=== PATIENT | female | born 1965 | race Caucasian/White ===

== ENCOUNTER 2021-05-12 19:23 | Outpatient (CLI) | payer OTHER ==
--- NOTE | 2021-05-13 11:02 | XRAY Report ---
PROCEDURE: Foot 3 View LT INDICATIONS: FX OF L FOOT TECHNIQUE: 3 views of the foot were acquired. COMPARISON: None FINDINGS: Bones: No fractures or dislocations. No suspicious bony lesions. Soft tissues: No tibiotalar joint effusion. Achilles tendon appears normal. IMPRESSION: 1. No visible fractures. 2. If there is no improvement with conservative management, consider MRI. Reviewed by: Libra Wray MD on 05/13/2021 11:00 AM PDT Approved by: Libra Wray MD on 05/13/2021 11:00 AM PDT Station ID: [id number]
== END 2021-05-12 23:59 | disposition home or self-care (01) ==
LOC: DI.N 19:23
PROVIDERS: ATTEND Physician Assistant Medical
DX: S92.902A Unspecified fracture of left foot, initial encounter for closed fracture (principal)